=== PATIENT | female | born 1975 | race Caucasian/White ===

== ENCOUNTER 2022-03-09 08:47 | Observation (INO) | payer BC ==
[2022-03-09] MEDS: Acetaminophen 325 MG Tab PO PRN ×3 (10:10→22:57)
[2022-03-09] MEDS ORDERED: Ondansetron 4 MG Tab.DIS PO PRN (11:25)
[2022-03-09] MEDS ORDERED: Ondansetron 4 MG/2 ML SDV IV PRN (11:25)
[2022-03-09 12:02] LABS: CHLORIDE,CL 103 mEq/L (98-106); SODIUM,NA 140 mEq/L (136-145)
[2022-03-09] MEDS: Sodium Chloride 0.9% 1,000 ML IV SCH (13:05)
[2022-03-09] MEDS: ceFAZolin 1 GM Vial IVPUSH SCH ×2 (14:51→22:43)
[2022-03-09] MEDS: Acetaminophen/oxyCODONE 325-5 MG Tab PO PRN (21:14)
[2022-03-10] MEDS: Sodium Chloride 0.9% 1,000 ML IV SCH (00:04)
[2022-03-10] MEDS: HYDROmorphone 1 MG/ML Syringe IVPUSH PRN ×3 (01:12→06:01)
[2022-03-10] MEDS: ceFAZolin 1 GM Vial IVPUSH SCH ×3 (05:54→21:49)
[2022-03-10] MEDS ORDERED: Lactated Ringers 1,000 ML IV SCH (07:00)
[2022-03-10] MEDS ORDERED: Lidocaine 1% with EPINEPHrine 1:100,000 20 ML MDV ONE (07:32)
[2022-03-10] MEDS ORDERED: Non-Formulary Medication 1 Each (Aripiprazole [Abilify] 10 MG Tablet) PO SCH (08:00)
[2022-03-10] MEDS ORDERED: buPROPion 150 MG Tab.ER PO SCH (08:00)
[2022-03-10] MEDS: BUPROPION 300 MG PO SCH (11:54)
[2022-03-10] MEDS: VENLAFAXINE HCL 75 MG PO SCH (11:55)
[2022-03-10] MEDS: VENLAFAXINE HCL 150 MG PO SCH (11:56)
[2022-03-10] MEDS: BREXPIPRAZOLE 2 MG PO SCH (11:57)
[2022-03-10] MEDS: OMEPRAZOLE 20 MG PO SCH (11:57)
[2022-03-10] MEDS ORDERED: Melatonin 3 MG Tab PO PRN (12:11)
[2022-03-10] MEDS: Acetaminophen/oxyCODONE 325-5 MG Tab PO PRN ×2 (14:26→21:52)
[2022-03-11] MEDS: ceFAZolin 1 GM Vial IVPUSH SCH ×2 (06:09→13:28)
[2022-03-11] MEDS: BREXPIPRAZOLE 2 MG PO SCH (07:52)
[2022-03-11] MEDS: BUPROPION 300 MG PO SCH (07:52)
[2022-03-11] MEDS: OMEPRAZOLE 20 MG PO SCH (07:54)
[2022-03-11] MEDS: VENLAFAXINE HCL 150 MG PO SCH (07:55)
[2022-03-11] MEDS: VENLAFAXINE HCL 75 MG PO SCH (07:56)
[2022-03-11] MEDS: Acetaminophen/oxyCODONE 325-5 MG Tab PO PRN (11:41)
[2022-03-11] MEDS ORDERED: Ibuprofen 200 MG Tab PO ONE (11:48)
== END 2022-03-11 15:15 | disposition home or self-care (01) ==
LOC: UNDOADMIN 08:47 → CC.MS 08:47 → INTOOBSV 09:14 → CC.MS 09:14 → UNDOADMOB 09:14 → CC.MS 11:25
PROVIDERS: ADMIT Nurse Practitioner Family; ATTEND Nurse Practitioner Family
DX: K80.12 Calculus of gallbladder with acute and chronic cholecystitis without obstruction (principal); R58 Hemorrhage, not elsewhere classified; I10 Essential (primary) hypertension; F32.A Depression, unspecified; F41.9 Anxiety disorder, unspecified; Z90.49 Acquired absence of other specified parts of digestive tract; Z88.2 Allergy status to sulfonamides; Z79.890 Hormone replacement therapy; Z20.822 Contact with and (suspected) exposure to COVID-19
CPT/HCPCS: 00790; 36415; 80053; 81001; 85025; 86140; 96374; 96376; 99217; 99220; 99225; A9270-GY; G0378; J0690; J1170; J7030; J7120; U0002

== ENCOUNTER 2024-05-31 09:40 | Day surgery (SDC) | payer BC ==
[2024-05-31] MEDS ORDERED: Midazolam 1 MG/ML 2 ML SDV ONE (09:55)
[2024-05-31] MEDS ORDERED: Propofol 200 MG/20 ML SDV ONE (09:55)
[2024-05-31] MEDS ORDERED: Ketamine 200 MG/20 ML MDV ONE (09:55)
[2024-05-31] MEDS ORDERED: Metoclopramide 10 MG/2 ML SDV ONE (09:55)
[2024-05-31] MEDS ORDERED: fentaNYL 50 MCG/ML SDV ONE ×2 (09:55)
[2024-05-31] MEDS ORDERED: Flumazenil 0.1 MG/ML 10 ML MDV ONE (09:55)
[2024-05-31] MEDS: Lactated Ringers 1,000 ML IV SCH (10:08)
== END 2024-05-31 11:35 | disposition home or self-care (01) ==
LOC: CC.SDS 09:40
PROVIDERS: ATTEND Family Medicine
DX: K64.8 Other hemorrhoids (principal); K92.1 Melena; I10 Essential (primary) hypertension; E03.9 Hypothyroidism, unspecified; F41.8 Other specified anxiety disorders; Z79.899 Other long term (current) drug therapy; Z88.2 Allergy status to sulfonamides
CPT/HCPCS: 00811; J2250; J2704; J2765; J3010; J3490; J7120